=== PATIENT | male | born 1995 | race Caucasian/White ===

== ENCOUNTER 2021-01-16 18:16 | Emergency (ER) | payer SELFPAY ==
[~2021-01-16] VITALS: Ht 172.7 cm; Wt 81.6 kg
--- NOTE | 2021-01-16 18:17 | NUR ---
Patient to ER bed H1 to gown for evaluation. Side rails up
--- NOTE | 2021-01-16 18:20 | NUR ---
ER at bedside examining patient.
[2021-01-16 18:22] VITALS: BP_SYST 126
--- NOTE | 2021-01-16 18:25 | NUR ---
Pt came to ER via law [employer] for [employer] to book, no complaints at this time, states no pain or injuries. Pt resting in chair [employer] at side, VSS, comfortable.
[2021-01-16 18:36] VITALS: BP_SYST 126
--- NOTE | 2021-01-16 18:36 | NUR ---
Patient given written and verbal discharge instructions and verbalizes understanding. ER MD discussed with patient the results and treatment provided. Patient in stable condition. ID arm band removed. No Rx given. Patient educated on pain management and to follow up with PMD. Pain Scale 0/10. Opportunity for questions provided and answered. Medication side effect fact sheet provided.
== END 2021-01-16 18:36 | disposition home or self-care (01) ==
LOC: SED 18:16
DX: Z02.89 Encounter for other administrative examinations (principal)
CPT/HCPCS: 99283